=== PATIENT | male | born 1985 | race African-American/Black ===

== ENCOUNTER 2017-09-02 13:15 | Emergency (ER) | payer OTHER ==
[~2017-09-02] VITALS: Ht 175.3 cm; Wt 68.2 kg
[2017-09-02] MEDS ORDERED: TRUVT PO (14:04)
[2017-09-02] MEDS ORDERED: KETOROLAC TROMETHAMINE 60 MG/2 ML VIAL IM ONE (19:30)
[2017-09-02 21:02] VITALS: BP 120/59
== END 2017-09-02 21:35 | disposition left against medical advice (07) ==
LOC: EMS 13:17
DX: S82.101A Unspecified fracture of upper end of right tibia, initial encounter for closed fracture (principal); F12.90 Cannabis use, unspecified, uncomplicated; Y04.0XXA Assault by unarmed brawl or fight, initial encounter; Y93.89 Activity, other specified; Y92.89 Other specified places as the place of occurrence of the external cause; Y99.8 Other external cause status
CPT/HCPCS: 29505; 73562; 96372; 99284; J1885